=== PATIENT | female | born 1965 | race Caucasian/White ===

== ENCOUNTER 2025-03-20 19:30 | Emergency (ER) | payer OTHER ==
[~2025-03-20] VITALS: Ht 162.6 cm; Wt 83.9 kg
[~2025-03-20 19:30] MED LIST: CARI350T PO; HYDR-4209 PO; HYDR-4275 PO
[2025-03-20 21:06] VITALS: BP 126/85; TEMP 98.2; O2SAT 96
== END 2025-03-20 21:39 | disposition home or self-care (01) ==
LOC: ER 19:31
DX: I10 Essential (primary) hypertension (principal); G89.29 Other chronic pain; Z88.0 Allergy status to penicillin

== ENCOUNTER 2025-05-01 14:08 | Emergency (ER) | payer MEDICAID, OTHER ==
[~2025-05-01] VITALS: Ht 162.6 cm; Wt 83.0 kg
[2025-05-01] MEDS ORDERED: LIDOCAINE 5% (PATCH) 1 EA PATCH TP ONE (15:14)
[2025-05-01] MEDS ORDERED: KETOROLAC TROMETHAMINE 15 MG/ML VIAL ONE (15:15)
[2025-05-01] MEDS ORDERED: MAG HYDROX/AL HYDROX/SIMETH 30 ML UDC ONE (15:15)
[2025-05-01] MEDS ORDERED: ACETAMINOPHEN ES 500 MG TABLET ONE (15:15)
[2025-05-01] MEDS ORDERED: LIDOCAINE VISCOUS 2% UD 15 ML UDC ONE (15:15)
[2025-05-01] MEDS: MAG HYDROX/AL HYDROX/SIMETH 30 ML UDC PO ONE (15:43)
[2025-05-01] MEDS: LIDOCAINE VISCOUS 2% UD 15 ML UDC MM ONE (15:43)
[2025-05-01] MEDS: KETOROLAC TROMETHAMINE 15 MG/ML VIAL IV ONE (15:44)
[2025-05-01 15:51] LABS: APPEARANCE,URINE CLEAR (CLEAR); BLOOD, URINE NEGATIVE Ery/uL (NEGATIVE); LEUKOCYTE ESTERASE ,URINE 1+ (NEGATIVE); NITRITE, URINE NEGATIVE (NEGATIVE); UGLUCOSE NEGATIVE (NEGATIVE)
[2025-05-01 16:12] LABS: ADD URINE CULTURE YES; SQUAMOUS EPITHELIAL CELL,UR None Seen /HPF (None Seen)
[2025-05-01] MEDS: LIDOCAINE 5% (PATCH) 1 EA PATCH TP SCH (17:07)
[2025-05-01] MEDS ORDERED: NITR100C6 PO (17:24)
[2025-05-01] MEDS ORDERED: ACET-73 PO (17:24)
[2025-05-01] MEDS ORDERED: CYCL5TAB PO (17:24)
[2025-05-01] MEDS ORDERED: LIDO30AD10 TP (17:24)
[2025-05-01] MEDS ORDERED: IBUP-1490 PO (17:24)
[2025-05-01] MEDS ORDERED: CYCLOBENZAPRINE 10 MG TABLET ONE (17:43)
[2025-05-01] MEDS ORDERED: LORAZEPAM INJ 2 MG/ML VIAL ONE ×2 (17:44→17:46)
[2025-05-01] MEDS: ACETAMINOPHEN ES 500 MG TABLET PO ONE (17:51)
[2025-05-01] MEDS: CYCLOBENZAPRINE 10 MG TABLET PO ONE (17:52)
[2025-05-01] MEDS: LORAZEPAM INJ 2 MG/ML VIAL IV ONE (17:54)
[2025-05-01 20:13] VITALS: BP 122/50; TEMP 98.5; O2SAT 97
== END 2025-05-01 19:30 | disposition home or self-care (01) ==
LOC: ER 14:11
DX: M54.42 Lumbago with sciatica, left side (principal); N39.0 Urinary tract infection, site not specified; Z88.0 Allergy status to penicillin
CPT/HCPCS: 99285; 96374; 72131; 96375; 87086; 81001; J1885; J2060 ×2